=== PATIENT | male | born 1975 | race Caucasian/White ===

== ENCOUNTER → 2019-06-20 | Emergency (ER) | payer SELFPAY ==
[~2019-06-20] VITALS: Ht 177.8 cm; Wt 88.5 kg
--- OUTSIDE RECORDS SUMMARY | 2019-06-28 11:29 | XMS REPORT ---
Author Author [facility] Address Unknown Phone Unavailable Care Team Providers Care Marketing Communications Manager Name Role Phone Unavailable Unavailable Problems This patient has no known problems. Allergies, Adverse Reactions, Alerts This patient has no known allergies or adverse reactions. Medications This patient has no known medications. Encounters Start Date/Time End Date/Time Encounter Type Admission Type Attending [facility] Facility Care Department Encounter ID [id number] 00:00:00 2017-05-31 00:00:00 [facility] [id number]
== END | disposition left against medical advice (07) ==
LOC: ER 13:49
DX: M79.641 Pain in right hand (principal)